=== PATIENT | female | born 1965 | race Caucasian/White ===

== ENCOUNTER → 2018-05-05 | Outpatient (CLI) | payer BC ==
--- NOTE | 2018-05-06 09:13 | MM ---
Reason for exam: screening (asymptomatic). Last mammogram was performed 2 years and 7 months ago. History: Patient is postmenopausal. Cyst aspiration of the left breast, 2009. Took hormonal contraceptives for 7 years beginning at age 19. Taking other hormone for 13 years beginning at age 29. Physical Findings: A clinical breast exam by your physician is recommended on an annual basis and results should be correlated with mammographic findings. MG 3D Screening Mammo W/Cad Bilateral CC and MLO view(s) were taken. Prior study comparison: October 11, 2015, bilateral MG 3d screening mammo w/cad. July 09, 2014, bilateral MG screening mammo w CAD. There are scattered fibroglandular densities. No suspicious abnormality. No significant changes when compared with prior studies. ASSESSMENT: Negative, BI-RAD 1 RECOMMENDATION: Routine screening mammogram of both breasts in 1 year.
== END | disposition home or self-care (01) ==
LOC: RADMAMWWP 10:36
PROVIDERS: ATTEND Family Medicine
DX: Z12.31 Encounter for screening mammogram for malignant neoplasm of breast (principal)
CPT/HCPCS: 77063; 77067

== ENCOUNTER → 2023-03-08 | Outpatient (CLI) | payer OTHER ==
--- NOTE | 2023-03-08 15:22 | XR ---
EXAMINATION TYPE: XR Hip Complete RT DATE OF EXAM: 03/08/2023 3:16 PM INDICATION: Patient age:Female; 57 years old; Reason for study: [id number] RT HIP PAIN; [facility]. COMPARISON: None. TECHNIQUE: The right hip was examined in the frontal and lateral projections . FINDINGS: No evidence of any acute osseous pathology, joint dislocation, or soft tissue swelling. SI joint appears intact. No significant joint space narrowing or spurring. Right-sided pelvic phlebolith s. IMPRESSION: No acute osseous pathology.
== END | disposition home or self-care (01) ==
LOC: RADXRYALE 15:04
PROVIDERS: ATTEND Physician Assistant Medical
DX: M25.551 Pain in right hip (principal)
CPT/HCPCS: 73502

== ENCOUNTER → 2024-11-17 | Outpatient (CLI) | payer OTHER ==
--- NOTE | 2024-11-17 17:42 | US ---
EXAMINATION TYPE: US transvaginal DATE OF EXAM: 11/17/2024 COMPARISON: 07/03/2010 CLINICAL INDICATION: Female, 59 years old with history of Z80.49 FAMILY HISTORY OF MALIGNANT NEOPLASM OF OTH; Vaginal lump - patient denies any other signs, symptoms, or relevant history TECHNIQUE: Transvaginal (TV). Transabdominal grayscale sonographic images of the ovaries were acquired post transvaginal. Transvag inal sonographic images were ordered. Doppler imaging: Not performed. FINDINGS: Date of LMP: About 8 years ago EXAM MEASUREMENTS: Uterus: 6.4 x 3.6 x 4.6 cm Endometrial Stripe: 0.5 cm Right Ovary: 2.2 x 2.0 x 2.0 cm Left Ovary: 2.6 x 1.9 x 2.2 cm 1. Uterus: Anteverted ? Heterogenous / complex area seen = 1.5 x 1.7 x 2.3 cm 2. Endometrium: wnl 3. Right Ovary: wnl 4. Left Ovary: wnl Spectral, color and waveform doppler imaging shows good arterial and venous flow within the ovaries ; there is no evidence for ovarian torsion. 5. Bilateral Adnexa: wnl 6. Posterior cul-de-sac: wnl IMPRESSION: Correlate for possible uterine leiomyoma O-RADS 2021 [email or web address] [email or web address], , 11/17/2024 5:39 PM
== END | disposition home or self-care (01) ==
LOC: RADUSWWP 15:54
PROVIDERS: ATTEND Family Medicine
DX: R22.9 Localized swelling, mass and lump, unspecified (principal); Z80.49 Family history of malignant neoplasm of other genital organs
CPT/HCPCS: 76830